=== PATIENT | female | born 1940 | race Caucasian/White ===

== ENCOUNTER 2019-07-27 12:43 | Emergency (ER) | payer OTHER, MEDICARE ==
[~2019-07-27] VITALS: Ht 172.7 cm; Wt 85.0 kg
[~2019-07-27 12:43] MED LIST: ALENDRONATE SOD70 MG PO; ALTOPREV40 MG PO; CIPRO XR500 MG PO; FLEXERIL5 M1 PO; LEVOTHYROXIN100 MC1 PO; LOPID600 MG PO; METO50TA52 PO; METOPROLOL TART50 MG PO; MULTI VIT PO; NAPROSYN500 MG PO; PRAVASTATIN40 MG PO
[2019-07-27] MEDS ORDERED: METOPROL TAR25 MG PO (13:08)
[2019-07-27] MEDS ORDERED: LEVOTHYROXIN125 MCG PO (13:08)
[2019-07-27] MEDS ORDERED: VITAMIN D2000 UNI3 PO (13:09)
[2019-07-27] MEDS ORDERED: OXYBUTYNIN CHLOR5 M1 PO (13:10)
[2019-07-27] MEDS ORDERED: FENOFIBRATE54 MG PO (13:10)
[2019-07-27] MEDS ORDERED: METHENAMINE HIPP1 GM PO (13:12)
[2019-07-27 14:20] VITALS: BP 165/72
== END 2019-07-27 14:30 | disposition home or self-care (01) | DRG 605 ==
LOC: ED 12:43
DX: S20.211A Contusion of right front wall of thorax, initial encounter (principal); I25.10 Atherosclerotic heart disease of native coronary artery without angina pectoris; I10 Essential (primary) hypertension; V49.50XA Passenger injured in collision with unspecified motor vehicles in traffic accident, initial encounter

== ENCOUNTER 2022-10-17 10:16 | Emergency (ER) | payer MEDICARE, OTHER ==
[2022-10-17] VITALS (8 sets, daily range): BP systolic 109–156; BP diastolic 68–89
[~2022-10-17] VITALS: Ht 172.7 cm; Wt 76.0 kg
[~2022-10-17 10:16] MED LIST changes: +FENOFIBRATE54 MG PO; +LEVOTHYROXIN125 MCG PO; +METHENAMINE HIPP1 GM PO; +METOPROL TAR25 MG PO; +OXYBUTYNIN CHLOR5 M1 PO; +VITAMIN D2000 UNI3 PO
[2022-10-17 11:38] LABS: BASO% 0.8 % (0-3); EOS% 2.7 % (0-8); HEMATOCRIT 41.7 % (37.0-47.0); HEMOGLOBIN 13.9 g/dl (12.0-16.0); LYMPH% 16.1 % (15-41); MEAN CORPUSCULAR HGB 30.3 pG CALC (26.0-32.0); MEAN CORPUSCULAR HGB CONC 33.3 g/dL CAL (32.0-36.0); MONO% 9.7 % (2-13); NEUT# 2.63 thou/uL (2.00-7.15); NEUT% 70.7 % (42-76); RED BLOOD COUNT 4.58 mill/uL (4.20-5.60)
[2022-10-17 11:47] LABS: ALBUMIN 4.2 g/dL (3.2-5.0); ALKALINE PHOSPHATASE 50 u/l (38-126); ANION GAP 13 (6-22 (CALC)); BILIRUBIN, TOTAL 0.4 mg/dL (0.0-1.4); BUN 22 mg/dL (8-23); BUN/CREATININE RATIO 26 (12-20 (CALC)); CARBON DIOXIDE 24 mmol/l (22-30); CHLORIDE 108 mmol/l (95-108); CREATININE 0.8 mg/dL (0.5-1.0); GFR FOR AFR.AMER. > 60 ML/MIN (>=60 (CALC)); GFR OTHER RACES > 60 ML/MIN (>=60 (CALC)); POTASSIUM 4.4 mmol/l (3.5-5.1); SGOT/AST 24 u/l (9-36); SODIUM 140 mmol/l (137-146); TOTAL PROTEIN 6.8 g/dL (6.3-8.2)
== END 2022-10-17 13:33 | disposition home or self-care (01) ==
LOC: ED 10:16
PROVIDERS: Family Medicine
DX: G62.9 Polyneuropathy, unspecified (principal); I10 Essential (primary) hypertension; E78.5 Hyperlipidemia, unspecified; I25.10 Atherosclerotic heart disease of native coronary artery without angina pectoris

== ENCOUNTER 2024-06-08 17:22 | Emergency (ER) | payer MEDICARE, OTHER ==
[2024-06-08] VITALS (7 sets, daily range): BP systolic 122–156; BP diastolic 60–127
[~2024-06-08] VITALS: Ht 172.7 cm; Wt 68.0 kg
[~2024-06-08 17:22] MED LIST changes: +AMLODIPINE BES2.5 MG PO; +CRESTOR10 MG PO; +ELIQUIS5 MG PO; +TRAZODONE50 MG PO; +XARELTO20 MG PO
[2024-06-08] MEDS ORDERED: LORazepam 2 MG/ML IV ONE (17:40)
[2024-06-08 18:09] LABS: BASO% 1.1 % (0-3); EOS% 1.6 % (0-8); HEMATOCRIT 37.1 % (37.0-47.0); HEMOGLOBIN 12.5 g/dl (12.0-16.0); LYMPH% 14.9 % (15-41); MEAN CELL VOLUME 90.7 fL CALC (80.0-100.0); MEAN CORPUSCULAR HGB 30.6 pG CALC (26.0-32.0); MEAN CORPUSCULAR HGB CONC 33.7 g/dL CAL (32.0-36.0); NEUT# 3.25 thou/uL (2.00-7.15); NEUT% 72.4 % (42-76); RED BLOOD COUNT 4.09 mill/uL (4.20-5.60); RED CELL DISTRI WIDTH 14.4 % (11.5-15.5)
[2024-06-08] MEDS ORDERED: XANAX0.25 MG PO (18:20)
[2024-06-08 18:26] LABS: CREATININE 0.8 mg/dL (0.5-1.0); POTASSIUM 3.7 mmol/l (3.5-5.1)
== END 2024-06-08 18:54 | disposition home or self-care (01) ==
LOC: ED 17:22
PROVIDERS: Family Medicine
DX: F41.9 Anxiety disorder, unspecified (principal); I10 Essential (primary) hypertension; I25.10 Atherosclerotic heart disease of native coronary artery without angina pectoris; I48.91 Unspecified atrial fibrillation; E78.5 Hyperlipidemia, unspecified; Z95.818 Presence of other cardiac implants and grafts
CPT/HCPCS: J2060